=== PATIENT | male | born 1950 | race Caucasian/White ===

== ENCOUNTER → 2023-10-13 09:04 | Outpatient (REF) | payer MEDICARE, SELFPAY | LOC: RCS 09:04 | PROVIDERS: ATTENDING PHYSICIAN Internal Medicine Cardiovascular Disease; FAMILY PHYSICIAN Family Medicine | DX: I47.29 Other ventricular tachycardia (principal) | CPT/HCPCS: 93017; 93350 ==

== ENCOUNTER 2023-11-26 07:28 | Day surgery (SDC) | payer MEDICARE, SELFPAY ==
[2023-11-26] VITALS (12 sets, daily range): BP systolic 114–125; BP diastolic 58–80; BMI 27.7
[2023-11-26] MEDS: LOW STRENGTH ASPIRIN 324 MG PO (08:09)
[2023-11-26] MEDS: NSS 271 ML IV (08:09)
[2023-11-26 08:15] LABS: Hematocrit 48.5 % (39.0-52.0); Hemoglobin 16.8 g/dL (13.0-18.0); Mean Corp Hgb Conc. 34.6 g/dL (33.0-37.0); Mean Corpuscular Hgb 29.8 pg (27.0-31.0); Mean Platelet Volume 10.2 fL (7.4-10.4); Platelet Count 278 10^3/uL (130-400); Red Blood Cell Count 5.64 10^6/uL (4.70-6.10); Red Cell Dist. Width 12.4 % (11.5-14.5); White Blood Cell Count 6.1 10^3/uL (4.8-10.8)
[2023-11-26 08:31] LABS: ALT (SGPT) 36 U/L (0-50); AST (SGOT) 35 U/L (17-59); Albumin 4.6 g/dl (3.5-5.0); Alkaline Phosphatase 56 U/L (38-126); Blood Urea Nitrogen 14 mg/dl (9-20); Calcium 9.8 mg/dl (8.4-10.2); Carbon Dioxide 27 mmol/L (22-30); Chloride 105 mmol/L (98-107); Estimated Creatinine Clearance 90 ml/min; Glucose 94 mg/dl (70-99); Potassium 4.5 mmol/L (3.5-5.1); Sodium 136 mmol/L (135-145); Total Bilirubin 1.1 mg/dl (0.2-1.3); Total Protein 7.7 g/dl (6.3-8.2); eGFR > 60.00
--- NOTE | 2023-11-26 10:01 | ITS.CL.CATH ---
Lift Team Technician - Catheterization
Cardiac Catheterization
Procedure Report:
LEFT HEART CATHETERIZATION
Date of Procedure: November 26, 2023
Referring: Dr. Ramon Ray and Dr. Christian Bobo
PROCEDURES:
1. Left heart catheterization with coronary and single-plane left ventriculography
INDICATION: This is a 73-year-old gentleman with a past medical history notable for paroxysmal atrial fibrillation and nonsustained ventricular tachycardia with exercise. He was evaluated by Dr. Bobo and the decision was made to proceed with
left heart catheterization given possible polymorphic nonsustained ventricular tachycardia associated with exercise/stress test
ACCESS: Right radial artery, 6 [place] sheath
HEMODYNAMICS : (mmHg)
AO (s/d) : 106/61
LV (s/d) : 115/10
LVEDP : 23
CORONARY FINDINGS :
NOTE: The patient developed significant bradycardia, heart block during contrast injections of both the right and left coronary systems. Pauses lasting several seconds with hypotension and symptoms. Atropine 0.2 mg was administered following
several long pauses with symptoms. Interestingly, the heart block during right coronary injections and left coronary injections.
DOMINANCE: Right
LEFT MAIN: Normal
LEFT ANTERIOR DESCENDING: The LAD arises normally from the left main and runs in the anterior interventricular groove. The LAD supplies a large first diagonal branch and smaller second diagonal branch. The mid LAD has a 20% stenosis before the
origin of the smaller second diagonal branch. Remainder of the LAD has only minor irregularities and wraps around the apex supplying a portion of the inferior wall.
CIRCUMFLEX: The circumflex is a medium caliber nondominant vessel giving rise to medium caliber OM1 and OM 2. The circumflex terminates in a small OM 3
RIGHT CORONARY ARTERY: The right coronary artery is a large-caliber dominant vessel that is widely patent over its course. The PDA is a small to medium caliber vessel that is widely patent.
VENTRICULOGRAPHY: Left ventriculography was performed in GONZALES projection. The digital single-plane left ventricular ejection fraction is estimated at 60% and no regional wall motion abnormalities are appreciated
RADIATION SUMMARY: Fluoro Time (min): 2.6, Dose (mGy): 275, DAP (Gy.cm2) : 21.3
Closure Device: TR band
CONCLUSIONS
1. Nonobstructive coronary disease
2. Preserved left ventricular systolic function
3. Heart block associated with contrast administration of both the left and right coronary system
Copy to: Dr. Christian Bobo
[2023-11-26] MEDS: NSS 1000 IV (10:05)
== END 2023-11-26 13:35 | disposition home or self-care (01) ==
LOC: CATH 07:28
PROVIDERS: ATTENDING PHYSICIAN Internal Medicine Interventional Cardiology; FAMILY PHYSICIAN Family Medicine; OTHER PHYSICIAN Internal Medicine Cardiovascular Disease
DX: I25.10 Atherosclerotic heart disease of native coronary artery without angina pectoris (principal); I48.0 Paroxysmal atrial fibrillation; I47.29 Other ventricular tachycardia; I45.9 Conduction disorder, unspecified
CPT/HCPCS: 80053; 85027; 93458; C1894; Q9967

== ENCOUNTER → 2023-12-16 07:52 | Outpatient (REF) | payer MEDICARE, SELFPAY | LOC: RAD 07:52 | PROVIDERS: ATTENDING PHYSICIAN Internal Medicine Interventional Cardiology; FAMILY PHYSICIAN Family Medicine | DX: I77.0 Arteriovenous fistula, acquired (principal) | CPT/HCPCS: 93930 ==

== ENCOUNTER 2024-01-11 08:30 | Day surgery (SDC) | payer MEDICARE, SELFPAY ==
[2023-12-31 12:47] VITALS: BMI 28.5
[2023-12-31 13:14] LABS: % Basophils 0.3 % (0-2); % Eosinophils 5.8 % (0-6); % Immature Granulocytes 0.4 % (0-0.5); % Lymphocytes 14.8 % (20.5-51.1); % Monocytes 7.2 % (1.7-9.3); % Neutrophils 71.5 % (42.2-75.2); Absolute Eosinophils 0.6 10^3/uL (0-0.7); Absolute Lymphocytes 1.5 10^3/uL (1.2-3.4); Absolute Monocytes 0.7 10^3/uL (0.1-0.6); Hemoglobin 15.7 g/dL (13.0-18.0); Mean Corp Hgb Conc. 34.1 g/dL (33.0-37.0); Mean Corpuscular Hgb 30.4 pg (27.0-31.0); Mean Corpuscular Volume 89.1 fL (80.0-94.0); Mean Platelet Volume 10.1 fL (7.4-10.4); Nucleated Red Blood Cells % 0 % (-); Platelet Count 216 10^3/uL (130-400); Red Blood Cell Count 5.16 10^6/uL (4.70-6.10); Red Cell Dist. Width 12.9 % (11.5-14.5); White Blood Cell Count 9.8 10^3/uL (4.8-10.8)
[2023-12-31 13:22] LABS: INR 1.96; PT 22.1 Sec (11.4-14.6)
[2023-12-31 13:23] LABS: ALT (SGPT) 32 U/L (0-50); AST (SGOT) 36 U/L (17-59); Albumin 4.5 g/dl (3.5-5.0); Alkaline Phosphatase 53 U/L (38-126); Blood Urea Nitrogen 16 mg/dl (9-20); Calcium 9.6 mg/dl (8.4-10.2); Carbon Dioxide 29 mmol/L (22-30); Chloride 101 mmol/L (98-107); Estimated Creatinine Clearance 87 ml/min; Glucose 88 mg/dl (70-99); Magnesium 1.9 mg/dl (1.6-2.3); Potassium 4.7 mmol/L (3.5-5.1); Sodium 136 mmol/L (135-145); Total Bilirubin 0.9 mg/dl (0.2-1.3); Total Protein 7.4 g/dl (6.3-8.2); eGFR > 60.00
[2024-01-11] VITALS (14 sets, daily range): BP systolic 98–147; BP diastolic 58–87
[2024-01-11] MEDS: NSS 500 IV (09:22)
[2024-01-11 12:00] LABS: ACT-LR - POC 342 Seconds (116-155)
[2024-01-11 12:33] LABS: ACT-LR - POC > 397 Seconds (116-155)
[2024-01-11 12:40] LABS: ACT-LR - POC 350 Seconds (116-155)
[2024-01-11] MEDS: TYLENOL 650 MG PO (13:25)
[2024-01-11] MEDS: DILAUDID 0.5 MG IV (13:37)
--- NOTE | 2024-01-11 14:53 | ITS.CL.ABL ---
[employer] - Ablation
Ablation
Procedure Report:
ELECTROPHYSIOLOGIC STUDY AND POSSIBLE ABLATION
DATE: January 11, 2024
Primary Care Provider: Dr Layne Moraes M.D.
Primary power builder developer: Dr Eloy Ray M.D.
INDICATION:
Symptomatic Atrial Fibrillation.
Paroxysmal
HISTORY: See H and P.
Symptomatic AF and PAT poorly controlled with attempted medical therapy
HAS-BLED: 1
Age
CHADSVASc: 2
HTN
Age
PRESENTING RHYTHM: SR
HISTORY: See H and P.
Symptomatic AF, poorly controlled with attempted medical therapy.
ANTICOAGULATION: Xarelto
'TIME-OUT': called and confirmed.
SEDATION/ANESTHESIA: provided via the anesthesia department using general anesthesia.
PROCEDURE:
Ultrasound Guidance performed by la was utilized for femoral venous Vascular Access b/l.
A decapolar CS catheter was placed within the CS for mapping and pacing.
The intracardiac ultrasound catheter was positioned in the RA for continuous intracardiac ultrasound imaging.
Heparin bolus and infusion to target ACT at 300 -350 seconds was administered. Transseptal puncture was performed. This entailed advancing a sheath with dilator into the superior vena cava and withdrawing both (monitoring intracardiac ultrasound,
fluoroscopy and tip pressure) with the tip oriented toward the atrial septum. The fossa ovalis was engaged (indicated by sudden displacement of the sheath tip as well as tenting of the fossa seen on intracardiac ultrasound).
AcQCross transseptal system was used. Left atrial catheter position was confirmed by echocardiographic imaging, pressure monitoring (LA mean pressure 8 mm Hg) and fluoroscopy. The sheath was advanced over the dilator and positioned in the left
atrium.
The multipolar mapping catheter was initially positioned through the transseptal sheath for high density mapping.
Geometry and voltage mapping was performed using the [employer] multipolar grid catheter. Navex was utilized for three-dimensional electroanatomical mapping.
A 3-D map was created using Navex. A 3-D reconstructed CT image was compared to the 3-D Navex map to assist in anatomic evaluation, mapping and ablation.
The [employer] Pulse Select PFA catheter and system was used for cardiac ablation. Catheter positioning was guided and confirmed using both I.C.E. and fluoroscopy.
PV isolation approach was used to electrically isolate each PV ostia.
Remapping with the [employer] multipolar grid catheter found that all PVPs were eliminated at each vein demonstrating entrance block. Also pacing from the multipolar mapping catheter around the the circumference of the ostia was performed at 10 ma and
2.0 msec output to assess for exit block. This demonstrated electrical isolation at each of the pulmonary vein ostia [ ] LSPV, LIPV, RSPV, RIPV.
Additional energy applications/additional ablation set was required to accomplish wide area circumferential ablation around each of the pulmonary vein sets after ostial isolation was accomplished.
I.C.E. :
Pre-Ablation Post-Ablation
LVEF: 55% 55%
WMA: None none
Pericardial effusion: Trace posterior trace posterior, unchanged
COMPLICATIONS:
None
SUMMARY:
- Mapping and ablation to isolate the PVs
- Additional AF ablation set after PVI.
- 3-D Electroanatomical Mapping
- Intracardiac Ultrasound
Post ablation, I discussed today's findings and results with the patient's daughter.
RECOMMENDATIONS:
- Observe in monitored bed.
- Maintain oral anticoagulation.
- Stop recently added Toprol-XL
- Office visit with me in 3 months.
- Continue cardiovascular care with Dr Frazier
Copy to:
Dr Layne Moraes M.D.
Dr Eloy Ray M.D.
--- NOTE | 2024-01-11 17:42 | W.PN.UPDATE ---
Update Note
Progress Note Update
Pt seen post PVI. Bilat groin sites without ht/bleeding. OOB ambulating, urinating without difficulty. Post EKG SB 50s, no acute changes. Will stop metoprolol at this time and continue xarelto tonight. Followup at [facility] arranged. Home today if groin
sites/tele remain stable.
== END 2024-01-11 17:32 | disposition home or self-care (01) ==
LOC: CATH 08:30
PROVIDERS: ATTENDING PHYSICIAN Internal Medicine Cardiovascular Disease; FAMILY PHYSICIAN Family Medicine; OTHER PHYSICIAN Internal Medicine Cardiovascular Disease
DX: I48.0 Paroxysmal atrial fibrillation (principal); I48.3 Typical atrial flutter; R94.31 Abnormal electrocardiogram [ECG] [EKG]; I35.1 Nonrheumatic aortic (valve) insufficiency; I10 Essential (primary) hypertension; Z79.82 Long term (current) use of aspirin
CPT/HCPCS: C1732; C1733; C1894; C1769; C1730; C1892; C1759; 36415; 75572; 76937; 80053; 83735; 85025; 85347; 85610; 86850; 86900; 86901; 93005; 93656; 93657; Q9967

== ENCOUNTER → 2024-04-05 06:59 | Outpatient (REF) | payer MEDICARE, SELFPAY | LOC: MRI 06:59 | PROVIDERS: ATTENDING PHYSICIAN Physician Assistant Medical; FAMILY PHYSICIAN Family Medicine | DX: M54.51 Vertebrogenic low back pain (principal); M96.1 Postlaminectomy syndrome, not elsewhere classified; M47.816 Spondylosis without myelopathy or radiculopathy, lumbar region | CPT/HCPCS: 72148 ==

== ENCOUNTER 2024-04-08 08:25 | Emergency (ER) | payer MEDICARE, SELFPAY ==
[2024-04-08] VITALS (22 sets, daily range): BP systolic 104–143; BP diastolic 75–103
--- NOTE | 2024-04-08 08:42 | ED.GENMED ---
History of Present Illness
General
Chief Complaint: Heart Rate Problem
Source: patient, records and physician
Exam Limitations: none
Time Seen by Provider: 04/08/24 08:32
Nursing documentation reviewed up to this point in time: agreed with
History of Present Illness
History of Present Illness:
73-year-old male presents with palpitations fatigue, onset a few weeks ago history of A-fib status post ablation on Xarelto diltiazem, saw his culture manager few weeks ago was started on amiodarone symptoms persist, feels short of breath, no cough no
leg edema no chest pain he has been n.p.o. in anticipation of a cardioversion patient has had some fast and slow heart rates
Past History
Past History
ED Past Medical History: Arrthythmia, HTN, Hypercholesterolemia and Other (Diverticulosis)
ED Past Surgical History: Cardiac and Orthopedic
Social History
Tobacco: Non-smoker
Alcohol: Occasional
Drug: None
Living: with family
Employment: Retired
Family History
Family History: Negative Diabetes, Hypertension or CAD
Review of Systems
Review of Systems
All Other Systems: Not applicable
Constitutional: Reports fatigue; Denies fever
Respiratory: Reports trouble breathing; Denies cough
Cardiac: Reports palpitations; Denies chest pain, diaphoresis or syncope
ABD/GI: Reports no symptoms
Phy Exam
Physical Exam
Physical Exam:
Physical Exam
General: no apparent distress, not acutely ill
Neck: No jaundice
Heart: Tachycardia
Lungs: no acute respiratory distress. No wheezing
Neuro: alert and oriented. no focal neurological deficits
Skin: no rash
Psychiatric: well kept. interactive and cooperative
Extremities: no edema.
Course
Orders/Labs/Results
Orders:
Orders
04/08/24 08:32
Propofol [Diprivan] 100 mg IV NOW STA
04/08/24 08:33
Electrocardiogram (*1) Stat
Reason for Study: Other
Other Reason for Exam: chest pain
ASA Classification Routine
Cardiac Monitoring- Treatment ONCE
EKG- Treatment ONCE
04/08/24 08:54
Complete Blood Count/No Diff Urgent
Comprehensive Metabolic Panel Urgent
Magnesium Urgent
TSH Urgent
Abnormal Lab Results
04/08/24
08:54
MPV 10.7 H fL
(7.4-10.4)
04/08/24 08:54
04/08/24 08:54
Vital Signs
Initial and Last Documented VS:
Initial Vital Signs
Temp Pulse Resp BP Pulse Ox
98.2 F 136 16 143/99 98
04/08/24 08:28 04/08/24 08:28 04/08/24 08:28 04/08/24 08:28 04/08/24 08:28
Last Documented Vital Signs
Temp Pulse Resp BP Pulse Ox
98.2 F 136 16 143/99 98
04/08/24 08:28 04/08/24 08:28 04/08/24 08:28 04/08/24 08:28 04/08/24 08:28
Procedures
Moderate Sedation
ASA Risk Score: Class II
Chart and allergies reviewed: Yes
Consent for anesthesia obtained: Yes
Time out completed (validating right patient & procedure): Yes
Moderate Sedation Start Time(when first medication is given): :07
History of difficult intubation: No
Airway free of obstruction: Yes
Patient has a gag reflex: Yes
Patient is able to open mouth: Yes
Patient has no dentures: Yes
Patient has no loose teeth: Yes
Medication administered by Provider during Moderate Sedation: IV Propofol (mg)
Total dose administered: 100
Time drug administered: :08
Moderate Sedation Procedure End Time: :
Cardioversion
Indication:: Afib
Performed by:: nancy
Energy Used: 200 joules
Successful?: Yes
ASA Risk Score: Class II
Any reaction or bad outcome to prior sedation/anesthesia?: No history of a reaction
Sedation level to be attained: moderate
Chart and allergies reviewed: Yes
Patient reassessed prior to sedation: Yes
Time out completed at (validating right patient & procedure): 09:07
History of difficult intubation: No
Airway free of obstruction: Yes
Patient has a gag reflex: Yes
Patient is able to open mouth: Yes
Patient has no dentures: Yes
Patient has no loose teeth: Yes
Medication administered by Provider during Moderate Sedation: IV Propofol (mg)
Total dose administered: 100
Time drug administered: :
Start Time: 09:08
Stop Time: 09:22
MDM/Problems Addressed
Differential Diagnosis Includes:
A-fib rapid ventricular response electrolyte abnormality endocrine thyroid abnormality
MDM/Problems Addressed:
Tachycardia
Chronic conditions affecting care: Arrhythmia
Acute Exacerbation and/or Progression of Chronic Illness: Arrhythmia
*EKG
Interpreted by ED Provider?: Yes
Interpretation: abnormal
Heart Rate: 140
Rate: tachycardiac
Rhythm: a-fib
Ischemia: non-specific ST changes
*Facility Maintenance Manager Interpretation
Rate: tachycardiac
Interpretation: abnormal
Heart Rate: 140
Rhythm: a-fib
*Critical Care Note
Total Time (30-74mins, 75-104mins- exclusive of procedures): 30
Data Reviewed
Review of Other/Old Records Reveals: Records
Source: patient, records and physician
Prescriptions/Medications Considered But Not Given:
Cardizem
Further Testing Considered But Not Given:
Chest x-ray
Update Note
Update Note:
Update patient tolerated cardioversion
Family cardiology updated postprocedure looks like normal sinus rhythm in the 70s
10:10 AM patient remains in sinus rhythm reviewed with cardiology patient to be discharged on amiodarone 200 twice daily for a month and 200 a day stop diltiazem
ED Attending Note
-
Portions of this chart may have been created with voice recognition software.� Occasional wrong word or��sound alike� substitutions may have occurred due to the inherent limitations of voice recognition software.
Discharge Plan
Departure
Patient Disposition: Home (Routine Discharge)
Date of Disposition: 04/08/24
Time of Disposition: 10:10
Patient with high blood pressure during this ER visit?: No
Condition: Good
Discharge Problem:
Atrial flutter with rapid ventricular response, Atrial fibrillation status post cardioversion
Instructions: Atrial Fibrillation (DC), MODERATE SEDATION ADULT
Prescriptions:
No Action
temazepam 7.5 mg Capsule
15 mg PO HS
pantoprazole 40 mg Tablet,Delayed Release (Dr/Ec)
40 mg PO DAILY PRN (Reason: gerd)
oxycodone 10 mg Tablet Extended Release 12 Hr
10 mg PO PRN PRN (Reason: pain)
Xarelto 20 mg tablet
20 mg PO QPM Qty: 30 11RF
bupropion HCl 150 mg Tablet Extended Release 24 Hr
150 mg PO Q48H
atorvastatin 10 mg Tablet
10 mg PO Q48H@2100
ascorbic acid (vitamin C) [Vitamin C] 1,000 mg Tablet
1,000 mg PO DAILY
psyllium 500 mg Capsule
0.52 g PO DAILY
zinc 50 mg Tablet
50 mg PO DAILY
magnesium 250 mg Tablet
250 mg PO DAILY
coenzyme Q10 [Co Q-10] 100 mg Capsule
300 mg PO DAILY
vitamin E (dl, acetate) 180 mg (400 unit) Capsule
180 mg PO DAILY
cholecalciferol (vitamin D3) [Vitamin D3] 125 mcg (5,000 unit) Tablet
125 mcg PO DAILY
vitamin L83-qikmr acid 500-400 mcg Tablet
1 tab PO DAILY
Probiotic Complex 25 billion cell -100 mg Capsule
1 cap PO DAILY
sildenafil 100 mg Tablet
50 mg PO DAILY PRN (Reason: erectile dysfunction)
diltiazem HCl [Cardizem CD] 180 mg Capsule,Extended Release 24hr
180 mg PO DAILY@1200
Referrals:
Layne Pena MD [Family Provider] -
Ramon Ray MD [Active] - Follow up in 1 week
Activity Restrictions/Additional Instructions:
Stop diltiazem/Cardizem
Continue amiodarone 200 mg twice a day for 1 month, then 200 mg a day
Interventions
Interventions:
*Risk Screen - Suicide Last Done: 04/08/24 08:28
*General Assessment Last Done: 04/08/24 08:28
*Neglect/Abuse Screening Last Done: 04/08/24 08:28
Discharge Date and Time
Print Language: SETSWANA
[2024-04-08 09:12] LABS: Hematocrit 45.5 % (39.0-52.0); Mean Corp Hgb Conc. 35.2 g/dL (33.0-37.0); Mean Corpuscular Hgb 30.9 pg (27.0-31.0); Mean Platelet Volume 10.7 fL (7.4-10.4); Platelet Count 204 10^3/uL (130-400); Red Blood Cell Count 5.17 10^6/uL (4.70-6.10); Red Cell Dist. Width 11.9 % (11.5-14.5); White Blood Cell Count 6.4 10^3/uL (4.8-10.8)
[2024-04-08 09:29] LABS: ALT (SGPT) 27 U/L (0-50); AST (SGOT) 31 U/L (17-59); Albumin 4.3 g/dl (3.5-5.0); Alkaline Phosphatase 49 U/L (38-126); Blood Urea Nitrogen 17 mg/dl (9-20); Calcium 9.4 mg/dl (8.4-10.2); Carbon Dioxide 25 mmol/L (22-30); Chloride 103 mmol/L (98-107); Glucose 85 mg/dl (70-99); Potassium 4.4 mmol/L (3.5-5.1); Sodium 139 mmol/L (135-145); Total Bilirubin 1.1 mg/dl (0.2-1.3); Total Protein 6.7 g/dl (6.3-8.2); eGFR > 60.00
[2024-04-08 10:00] LABS: TSH 1.78 uIU/ml (0.47-4.68)
== END 2024-04-08 10:30 | disposition home or self-care (01) ==
LOC: EMR 08:25
PROVIDERS: EMERGENCY PHYSICIAN Emergency Medicine; FAMILY PHYSICIAN Family Medicine
DX: I48.91 Unspecified atrial fibrillation (principal); I48.92 Unspecified atrial flutter; R53.83 Other fatigue; R42 Dizziness and giddiness; I10 Essential (primary) hypertension; E78.00 Pure hypercholesterolemia, unspecified; K57.90 Diverticulosis of intestine, part unspecified, without perforation or abscess without bleeding; M19.90 Unspecified osteoarthritis, unspecified site; Z79.01 Long term (current) use of anticoagulants; Z88.5 Allergy status to narcotic agent; Z88.8 Allergy status to other drugs, medicaments and biological substances
CPT/HCPCS: 99291; 92960; 99152; 80053; 83735; 84443; 85027; 93005